=== PATIENT | female | born 1950 | race Caucasian/White ===

== ENCOUNTER 2018-01-24 05:43 | Emergency (ER) | payer MEDICARE, OTHER ==
[2018-01-24] MEDS ORDERED: Aspirin 81 mg CHEW TAB* 81 MG TAB.CHEW PO ONE (06:29)
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
[2018-01-24 07:52] LABS: ABS Basophils 0.1 10^3/ul (0-0.2); ABS Eosinophils 0.1 10^3/ul (0-0.6); ABS Monocytes 0.6 10^3/ul (0-0.8); ABS Neutrophils 5.2 10^3/ul (1.5-7.7); ABS Nucleated RBC 0 10^3/ul; Eosinophil % 0.8 % (0-6); Hematocrit 43 % (35-47); Hemoglobin 14.8 g/dl (12.0-16.0); Lymphocyte % 25.2 % (25-47); Mean Corpuscular HGB Conc 35 g/dl (31-36); Mean Corpuscular Hemoglobin 31 pg (27-31); Mean Corpuscular Volume 88 fL (80-97); Nucleated Red Blood Cells % 0; Platelet Count 213 10^3/ul (150-450); Red Blood Count 4.84 10^6/ul (4.0-5.4); Red Cell Distribution Width 14 % (10.5-15); White Blood Count 7.8 10^3/ul (3.5-10.8)
[2018-01-24 08:01] LABS: INR 0.98 (0.77-1.02)
--- NOTE | 2018-01-24 09:23 | RAD ---
Indication: Left shoulder pain, upper extremity weakness. CT of the cervical spine was obtained in the axial plane. Sagittal and coronal reconstructed images were obtained. The vertebral bodies appear normal in height. Normal bone marrow signal is noted. Mastoid air cells and paranasal sinuses are otherwise unremarkable. Degenerative changes of the atlantoaxial joint are noted. The vertebral bodies appear normal in height. There is no evidence of fracture. No focal protrusion is identified. No central or foraminal stenosis is noted. At C5-6, spondylitic ridge with flattening of the thecal sac and bilateral uncovertebral joint hypertrophy is noted. No foraminal stenosis is noted. At C6-7, spondylitic ridge with bilateral uncovertebral joint hypertrophy narrows both foramina. No central or foraminal stenosis is noted. At C7-T1, no disc protrusion is noted. IMPRESSION: 1. Degenerative disc disease at C5-6 and C6-7 with bilateral uncovertebral joint hypertrophy at these levels. Mild bilateral foraminal stenosis is noted. 2. The soft tissues are otherwise unremarkable.
[2018-01-24 10:08] VITALS: BP 127/79
== END 2018-01-24 10:08 | disposition home or self-care (01) ==
LOC: ED 05:43
DX: S16.1XXA Strain of muscle, fascia and tendon at neck level, initial encounter (principal); X58.XXXA Exposure to other specified factors, initial encounter; M62.838 Other muscle spasm; R07.9 Chest pain, unspecified; Z88.0 Allergy status to penicillin; Z88.2 Allergy status to sulfonamides
CPT/HCPCS: 36415; 72125; 80053; 83605; 83735; 84484; 85025; 85610; 85730; 93005; 99283; A9270-GY